=== PATIENT | female | born 1950 | race Caucasian/White ===

== ENCOUNTER → 2020-05-05 | Outpatient (CLI) | payer OTHER ==
[~2020-05-05] MED LIST: ALBU90OI6 INH; ASPI81EC PO; BECL40OI INH; BUSP5 PO; GLYB5 PO; HYDACE5 PO; LEVSOD75 PO; LISI20 PO; METF500; METF500 PO; METO50 PO; PRAM.5 PO; PROM25 PO; RAMI5; SERT100; SIMV40 PO; VERA240ERB
== END | disposition home or self-care (01) ==
LOC: LAB 11:46 → LAB SHORT 11:46
DX: D22.5 Melanocytic nevi of trunk (principal)
CPT/HCPCS: 88305